=== PATIENT | female | born 1960 | race Caucasian/White ===

== ENCOUNTER → 2017-03-27 | Outpatient (CLI) | payer BC ==
--- NOTE | 2017-03-28 07:44 | MAMMOGRAPHY REPORT ---
BILATERAL DIGITAL SCREENING MAMMOGRAM TOMOSYNTHESIS WITH CAD: 03/27/2017 CLINICAL HISTORY: Routine screening. Patient has no complaints. TECHNIQUE: Breast tomosynthesis in addition to standard 2D mammography was performed. Current study was also evaluated with a Computer Aided Detection (CAD) system. COMPARISON: Comparison is made to exams dated: 03/23/2016 mammogram, 03/02/2015 mammogram, 12/12/2013 mammogram, 11/29/2012 mammogram, 11/17/2011 mammogram, and 10/17/2010 mammogram - [facility] nter. BREAST COMPOSITION: There are scattered areas of fibroglandular density in both breasts. FINDINGS: The parenchymal pattern is unchanged. No developing mass, architectural distortion or clus ter of suspicious microcalcifications is seen in either breast. IMPRESSION: ACR BI-RADS CATEGORY 2: BENIGN There is no mammographic evidence of malignancy. A 1 year screening mammogram is recommended. The pa tient will receive written notification of the results. Approximately 10% of breast cancers are not detected with mammography. A negative mammographic report should not delay biopsy if a clinically suggestive mass is present. Consuelo Alcaraz M.D. ay/:03/27/2017 20:05:28 Rerecording Mixer: Ginger SALINAS(Hyun)(Sahil)(BD), [facility] letter sent: Normal 1/2 BI-RADS Code: ACR BI-RADS Category 2: Benign
== END | disposition home or self-care (01) ==
LOC: C.MAMM 10:36
PROVIDERS: ATTEND Obstetrics & Gynecology
DX: Z12.31 Encounter for screening mammogram for malignant neoplasm of breast (principal)

== ENCOUNTER → 2017-05-22 | Outpatient (CLI) | payer BC ==
--- NOTE | 2017-05-22 11:04 | DIAGNOSTIC IMAGING REPORT ---
R HAND MIN 3 VIEWS CLINICAL HISTORY: RIGHT HAND PAIN COMPARISON: None FINDINGS: Alignment of the right hand is anatomic. No fracture or suspicious lesion is identified. No erosions are identified. There is mild joint space narrowing and osteophytosis within multiple interphalangeal joints of the right hand, most pronounced within the PIP joint of the right third digit. IMPRESSION: 1. No acute fracture. 2. 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 Electronically signed by: Xavi Abad M.D. 05/22/2017 11:02 AM Dictated Date/Time: 05/22/2017 11:00 AM
== END | disposition home or self-care (01) ==
LOC: C.RDSM 14:36
PROVIDERS: ATTEND Family Medicine
DX: M79.641 Pain in right hand (principal); M19.041 Primary osteoarthritis, right hand

== ENCOUNTER → 2017-08-02 | Day surgery (SDC) | payer BC ==
[2017-07-11 10:33] VITALS: Ht 170.2 cm; Wt 70.5 kg
[~2017-08-02] VITALS: Ht 170.2 cm; Wt 70.5 kg
[~2017-08-02] MED LIST: AMLO2.5T PO; ATROPINE SULFATE 0.1 MG/ML 5ML SYR IV PRN; BUPIVACAINE/EPINEPHRINE 0.5% MPF 1:200,000 30 ML VIAL ONE; CEFAZOLIN 1000MG IV PUSH 7.5 ML IV SCH; DEXAMETHASONE SOD INJ 4 MG/ML VIAL ONE; EpHEDrine SULFATE INJ 50 MG/ML AMP IV PRN; FENTANYL CITRATE INJ 50 MCG/1 ML 2 ML VIAL IV PRN; FENTANYL CITRATE INJ 50 MCG/1 ML 2 ML VIAL ONE; FLUMAZENIL 0.1 MG/1 ML 10 ML VIAL IV PRN; HYDR-5688 PO; HYDROmorphone INJ 2 MG/ML SYR/VIAL IV PRN; LABETALOL HCL IV 5 MG/ML 20ML IV PRN; LACTATED RINGER'S 1000ML 1,000 ML IV SCH; LIDOCAINE HCL 2% 2 ML VIAL (20MG/ML) ONE; LIDOCAINE/EPINEPHRINE 1% 20 ML VIAL ONE; LORA10CA2 PO; MELO-83 PO; MEPERIDINE HCL 25 MG/ML CARP IV PRN; MIDAZOLAM HCL 1 MG/ML 2ML VIAL ONE; MULT-506 PO; NALOXONE HCL 0.4 MG/1 ML VIAL/CARP IV PRN; ONDANSETRON INJ 2 MG/ML 2 ML VIAL IV PRN; ONDANSETRON INJ 2 MG/ML 2 ML VIAL ONE; OXYCODONE/ACETAMINOPHEN 5-325 TAB PO PRN; PHENYLEPHRINE 100MCG/ML 5ML SYR IV PRN; PROPOFOL IV EMULSION 10 MG/ML 20 ML VIAL IV ONE; SERT50TA PO; SODIUM CHLORIDE 0.9% 1000ML 1,000 ML IV SCH; [UNRECOGNIZED DRUG - CODE] EXT
--- NOTE | 2017-08-02 06:50 | History & Physical Bridge Note ---
H&P Re-Evaluation Bridge Note: I have examined the patient, reviewed the History & Physical and in the interval since the performance of the History & Physical I have noted the following changes of clinical significance: No changes noted
--- NOTE | 2017-08-02 07:30 | [facility] Post Operative Brief Note ---
Immediate Operative Summary Operative Date Aug 02, 2017. Pre-Operative Diagnosis Right hand long and ring finger trigger digits Post-Operative Diagnosis Same as preop Procedure(s) Performed Right Hand Long And Ring Finger Trigger Digit Releases Surgeon Dr. Luo Rn Pediatric Surgeon(s) Sury Hayward PA-C Estimated Blood Loss 0 mL Findings Consistent with Post-Op Diagnosis Specimens None Anesthesia Type Local Complication(s) none Disposition Accompanied Pt To Recovery: no Disposition: Recovery Room / PACU
--- NOTE | 2017-08-02 07:43 | [facility] Operative Report ---
Operative Report Operative Date Aug 02, 2017. Pre-Operative Diagnosis Right hand long and ring finger trigger digits Post-Operative Diagnosis Same as preop Procedure(s) Performed Right Hand Long And Ring Finger Trigger Digit Releases Surgeon Dr. Luo Senior Office Assistant Surgeon(s) Sury Hayward PA-C Estimated Blood Loss 0 mL Findings Trigger digits Specimens None Anesthesia Local with IV sedation Complication(s) None Disposition Recovery Room / PACU Indications Patient's 56-year-old female with a symptomatic right hand ring and long finger trigger digits refractory to nonsurgical methods of management. Description of Procedure Informed consent was obtained. The patient was identified as Yessenia Eastman. The patient identified the operative site as the right hand ring and long fingers which I marked with my initials. A preoperative surgical timeout was performed. A preop dose of IV antibiotics was given. The patient was positioned supine on the hospital stretcher with the right arm on hand table. A tourniquet was applied to the right arm. The limb was prepped and draped in the usual sterile fashion. The examination under anesthesia showed triggering of the after mentioned digits with hyperflexion without locking. DVT prophylaxis was not indicated The limb was exsanguinated with the Esmarch. Tourniquet inflated to 225 mmHg. A transverse incision was made using the distal palmar crease overlying the ring finger. Blunt dissection was performed in the midline. The tendon sheath was identified. The A1 artis was identified and divided in line with the incision. The artis was slightly thickened. Examination then revealed that the triggering was completely relieved. The tendon appeared normal. The identical procedure was performed on the long finger. The wound was then irrigated with sterile saline and then closed with 4-0 nylon using interrupted horizontal mattress stitches. A soft sterile dressing was applied. The patient was then awakened from anesthesia without difficulty and taken to the recovery room in stable condition. There were no specimens or complications. Counts were correct in the case. Blood loss was minimal. At the conclusion the operation spoke to patient's family informed them of my findings and gave detailed postoperative instructions. The tourniquet was let down after approximately 12 minutes of inflation. I attest to the content of the Intraoperative Record and any orders documented therein. Any exceptions are noted below.
--- NOTE | 2017-08-02 07:43 | Discharge Instructions-SurgCtr ---
Discharge Instructions Date of Service Aug 02, 2017. Visit Reason for Visit: Right Hand Long And Ring Finger Trigger Digits Discharge Discharge Diagnosis / Problem: Right hand long and ring finger trigger digits Discharge Goals Goal(s): Decrease discomfort, Improve function, Increase independence Activity Recommendations Activity Limitations: per Instructions/Follow-up section Anesthesia . Post Anesthesia Instructions: If you have had General Anesthesia or IV Sedation: * Do not drive today. * Resume driving when surgeon permits. * Do not make important decisions or sign legal documents today. * Call surgeon for: 1. Temperature elevations greater than 101 degrees F. 2. Uncontrollable pain. 3. Excessive bleeding. 4. Persistent nausea and vomiting. 5. Medication intolerance (nausea, vomiting or rash). * For nausea and vomiting use only clear liquids such as: tea, soda, bouillon until nausea subsides, then gradually increase diet as tolerated. * If you have any concerns or questions, call your surgeon's office. If physician is unavailable and it is an emergency, call 911 or go to the nearest emergency room. . Instructions / Follow-Up Instructions / Follow-Up The following are instructions to follow after minor hand surgery. ACTIVITY RECOMMENDATIONS: * Minimize activity until your first visit after surgery. * No excessive walking, jogging, sports or laboring. * Return to activity is individualized. Most patients are able to return to everyday activities within 2 weeks. * Return to sports or intensive labor usually occurs at 1-2 months. * DRIVING: Driving may be resumed when you feel you have adequate pain control and use of the hand. * BATHING: You may shower or sponge-bathe immediately after surgery. The dressing will need to be covered with a plastic bag or plastic wrap until the dressing is changed on the fourth or fifth day after surgery. Once the dressing has been changed on the fourth or fifth day after surgery, you may shower and get the incision wet. * Wash with regular soap and water. * Do not bathe (submerge the incision), soak, swim or use a hot tub until the incision is completely healed over with normal skin and the doctor has given the OK to proceed. * There is no need to apply any ointments, powders or salves to your incision. * Do not apply alcohol or hydrogen peroxide directly to the incision. Diluted peroxide (50:50 mixture with sterile saline) may be used to clean dried blood from around the incision area. WORK/SCHOOL: * You may return to sedentary work or school when you are feeling comfortable. This is usually 3-7 days after surgery. * Expect increased discomfort with increased activity. Continue to elevate and ice the hand as much as possible. DIET: * Resume previous diet. MEDICATIONS: * You will have a prescription for pain medication and an anti-inflammatory medication after surgery. Use the pain pills for severe pain and the anti-inflammatory for less severe pain. * Once the pain pills have run out, try to use the anti-inflammatory. If this is not effective then contact the office for assistance. * The pain medication may cause nausea, constipation and sleepiness. You should see how they affect you before driving or similar activity. * The anti-inflammatory may cause stomach upset and bleeding. If this occurs, let your doctor know immediately . * Some patients may need blood clot prevention. This can be done with either a pill or a simple shot. Your doctor will advise you on when to begin these medications and how to take them. * Do not take aspirin or other anti-inflammatory products (i.e. Advil or Aleve ) if taking blood thinner medication. * Take a stool softener like Colace or a stimulant like Senokot to prevent constipation. SPECIAL CARE INSTRUCTIONS: ICE: * Do not apply ice directly to the skin. * Use a thin dressing or stockinet between the skin and ice bag. The dressing in place after surgery will suffice. * Apply ice for 20-30 minutes and repeat every 2-4 hours. This is especially important for the first 3-7 days after surgery. * Once the pain improves, use ice as needed. ELEVATION: * Keep your hand elevated at or above the level of your heart as much as possible. * Expect some increased discomfort and swelling if you allow your hand to hang down for any length of time. DRESSING: * Your dressing will be changed 4-5 days after surgery by the physical therapist or physician's assistant office manager. Leave your dressing intact until this time. * You may then change your dressing daily with clean dry gauze or Band-aids and a soft wrap or stockinet. * Always wash your hands prior to touching the incision area. * Once the stitches are removed, you may leave the wound open to air or cover with a thin bandage. * There is no need to apply any ointments, powders or salves to your incision. * Expect some bloody drainage for the first few days after surgery. * Leave the tape strips in place (if present) for 5-7 days. * The initial dressing after surgery may become soaked with blood or fluid which is normal. You may reinforce your dressing with clean, dry gauze as needed. BRACE: * Bracing is generally not needed after routine hand surgery. THERAPY: * Physical therapy may be prescribed after your surgery. * For carpal tunnel and trigger digit surgery you may begin moving your fingers and wrist immediately after surgery as tolerated. * Be careful to not overuse. * Once the sutures are removed, further range of motion exercises can be performed. * Hand incisions may be very sensitive for a few months after surgery so avoid excessive pressure on the incision. If necessary, use a padded weightlifters' glove. * You may massage the incision with skin cream to make it less sensitive and reduce scarring. * Hand strength usually returns with normal use. * If needed, squeezing a soft sponge or Play-dough may help. * Your doctor will recommend physical therapy if necessary. PROBLEMS/QUESTIONS: * If you have any problems such as severe pain, numbness, tingling or high fevers or if you have any questions, please contact the office at [phone]. * It is not uncommon to have some numbness and tingling after the surgery especially if you have had a nerve block done. This should gradually improve over the first 1- 2 days. If this persists longer or worsens then contact the office. FOLLOW UP VISIT: * If not already scheduled, please call the office at to schedule follow-up appointments for approximately 10 days, 6 weeks and 3 months after surgery. *You have a physical therapy appointment scheduled on August 06, 2017 at 10:30 AM *You have a follow-up appointment scheduled with Dr. Luo in August 17, 2017 at 10 AM. Diet Recommendations Home Diet: no limitations, resume previous diet Procedures Procedures Performed: Right Hand Long And Ring Finger Trigger Digit Releases Pending Studies Studies pending at discharge: no Medical Emergencies . Who to Call and When: Medical Emergencies: If at any time you feel your situation is an emergency, please call 911 immediately. . Non-Emergent Contact Non-Emergency issues call your: Surgeon Call Non-Emergent contact if: temperature is above 101, your pain is not controlled, wound has increased drainage, wound has increased redness, wound has increased pain, you have any medication questions . . "Provider Documentation" section prepared by Sury Hayward. . [place] Drug Monitoring Program Search Results: patient reviewed within database, no issues identified
--- NOTE | 2017-08-02 07:47 | [facility] Operative Report ---
Operative Report Operative Date Aug 02, 2017. Pre-Operative Diagnosis Right hand long and ring finger trigger digits Post-Operative Diagnosis Same as preop Procedure(s) Performed Right Hand Long And Ring Finger Trigger Digit Releases Surgeon Dr. Luo Rod Greaser Surgeon(s) Sury Hayward PA-C Estimated Blood Loss 0 mL Findings Long and ring finger trigger digit Specimens None Drains None Anesthesia Type Local Complication(s) none Disposition no Recovery Room / PACU Indications Patient is a 56-year-old female with complaints of triggering of her right long and ring fingers. She has failed conservative treatment which has consisted of anti-inflammatories and corticosteroid injections. She is requested to proceed with surgical intervention. Risks and complications of surgery were explained to the patient. Informed consent was obtained and surgery was scheduled. X- rays were taken and found to have normal x-rays of her right hand. Description of Procedure Patient was taken to the operating room and placed under IV sedation. She was given local anesthetic into her ring and long fingers. Timeout was performed. She was given 1 g of IV Ancef for surgical prophylaxis. She was prepped and draped in routine sterile fashion. I was present during the entire case, please see Dr. Luo's operative report for further detail. Patient was awakened and transferred to the recovery room in stable condition. I attest to the content of the Intraoperative Record and any orders documented therein. Any exceptions are noted below.
[2017-08-02 08:10] VITALS: BP 128/86; PULSE 67; O2SAT 100
--- NOTE | 2017-08-02 08:12 | Anesthesia Progress Nt - [facility] ---
Anesthesia Post Op Note Date & Time Aug 02, 2017 at 08:12 Vital Signs Pain Intensity: 0 Vital Signs Past 12 Hours Date Time Temp Pulse Resp B/P (MAP) Pulse Ox O2 Delivery O2 Flow Rate FiO2 08/02/17 07:39 36.4 82 16 123/81 (95) 99 Room Air 08/02/17 06:39 36.5 84 16 98/ (32) 95 Room Air Notes Mental Status: alert / awake / arousable, participated in evaluation Pt Amnestic to Procedure: Yes Nausea / Vomiting: adequately controlled Pain: adequately controlled Airway Patency, RR, SpO2: stable & adequate BP & HR: stable & adequate Hydration State: stable & adequate Anesthetic Complications: no major complications apparent
== END | disposition home or self-care (01) ==
LOC: X.SURG 06:17
PROVIDERS: ATTEND Physical Medicine & Rehabilitation Sports Medicine
DX: M65.331 Trigger finger, right middle finger (principal); M65.341 Trigger finger, right ring finger; I10 Essential (primary) hypertension; J45.909 Unspecified asthma, uncomplicated; M16.10 Unilateral primary osteoarthritis, unspecified hip

== ENCOUNTER → 2017-09-19 | Outpatient (CLI) | payer BC ==
[~2017-09-19] MED LIST changes: -ATROPINE SULFATE 0.1 MG/ML 5ML SYR IV PRN; -BUPIVACAINE/EPINEPHRINE 0.5% MPF 1:200,000 30 ML VIAL ONE; -CEFAZOLIN 1000MG IV PUSH 7.5 ML IV SCH; -DEXAMETHASONE SOD INJ 4 MG/ML VIAL ONE; -EpHEDrine SULFATE INJ 50 MG/ML AMP IV PRN; -FENTANYL CITRATE INJ 50 MCG/1 ML 2 ML VIAL IV PRN; -FENTANYL CITRATE INJ 50 MCG/1 ML 2 ML VIAL ONE; -FLUMAZENIL 0.1 MG/1 ML 10 ML VIAL IV PRN; -HYDROmorphone INJ 2 MG/ML SYR/VIAL IV PRN; -LABETALOL HCL IV 5 MG/ML 20ML IV PRN; -LACTATED RINGER'S 1000ML 1,000 ML IV SCH; -LIDOCAINE HCL 2% 2 ML VIAL (20MG/ML) ONE; -LIDOCAINE/EPINEPHRINE 1% 20 ML VIAL ONE; -MEPERIDINE HCL 25 MG/ML CARP IV PRN; -MIDAZOLAM HCL 1 MG/ML 2ML VIAL ONE; -NALOXONE HCL 0.4 MG/1 ML VIAL/CARP IV PRN; -ONDANSETRON INJ 2 MG/ML 2 ML VIAL IV PRN; -ONDANSETRON INJ 2 MG/ML 2 ML VIAL ONE; -OXYCODONE/ACETAMINOPHEN 5-325 TAB PO PRN; -PHENYLEPHRINE 100MCG/ML 5ML SYR IV PRN; -PROPOFOL IV EMULSION 10 MG/ML 20 ML VIAL IV ONE; -SODIUM CHLORIDE 0.9% 1000ML 1,000 ML IV SCH
== END | disposition home or self-care (01) ==
LOC: C.RDSM 12:42
PROVIDERS: ATTEND Physical Medicine & Rehabilitation Sports Medicine
DX: M25.552 Pain in left hip (principal); Z91.048 Other nonmedicinal substance allergy status

== ENCOUNTER 2018-12-25 06:11 | Inpatient (IN) ==
--- NOTE | 2018-12-13 10:46 | PAT Medication Instructions ---
Medication Instructions Date of Service December 13, 2018 Home Medications albuterol sulfate 1 puff INHALATION UD PRN amlodipine 2.5 mg PO QAM cholecalciferol (vitamin D3) [Vitamin D3] 1,000 unit PO QAM cyanocobalamin (vitamin B-12) [Vitamin B-12] 1,000 mcg PO QAM fluticasone propionate [Flonase Allergy Relief] 1 spray INTRANASAL UD PRN loratadine 10 mg PO UD PRN multivitamin [Multiple Vitamins] 1 tab PO QDD sertraline [Zoloft] 1 - 1.5 tab PO QAM DO NOT take the morning of surgery cholecalciferol (vitamin D3) [Vitamin D3] 1,000 unit PO QAM cyanocobalamin (vitamin B-12) [Vitamin B-12] 1,000 mcg PO QAM loratadine 10 mg PO UD PRN Take morning of surgery With a small sip of water, OTHERWISE NOTHING TO EAT OR DRINK AFTER MIDNIGHT: albuterol sulfate 1 puff INHALATION UD PRN (use if needed; please bring with you to hospital day of surgery if possible) amlodipine 2.5 mg PO QAM fluticasone propionate [Flonase Allergy Relief] 1 spray INTRANASAL UD PRN (if needed) sertraline [Zoloft] 1 - 1.5 tab PO QAM Take evening before surgery albuterol sulfate 1 puff INHALATION UD PRN (if needed) fluticasone propionate [Flonase Allergy Relief] 1 spray INTRANASAL UD PRN (if needed) loratadine 10 mg PO UD PRN (if needed) multivitamin [Multiple Vitamins] 1 tab PO QDD Other Notes If you have any questions please call us at [phone] or [phone] or [phone] or [phone]
--- NOTE | 2018-12-13 11:13 | Anesthesiology Consultation ---
Date of Service December 13, 2018 Assessment & Plan (1) Encounter for pre-operative examination: Chart Review Chart Review: Acceptable Risk for Surgery (pending surgeon-ordered PCP clearance (Dr. Crandall; [facility])) and Patient seen in Pre Admission Testing Teaching & Discussion Pre-Anesthesia Teaching/Discussion Notes: Instructed NPO after midnight before surgery,except medications with 15 cc of water. Medication instructions provided according to the PAT guidelines. History Surgery Operation Date: 01/08/19 07:00 Proposed Procedures p Right Total Hip Arthroplasty - Mainor Jade MD Height/Weight Height: 5 ft 7 in Weight: 69.7 kg Allergies Allergy/AdvReac Type Severity Reaction Status Date / Time nickel Allergy Unknown SKIN Verified 12/06/18 09:21 IRRITATION No Known Drug Allergies Allergy Unknown . Verified 02/27/18 08:37 Additional Notes: *Surgeon/OR aware of nickel allergy* Medications Home Medications Medication Instructions Recorded Confirmed Last Taken albuterol sulfate 1 puff INHALATION UD PRN 02/04/18 12/06/18 Unknown amlodipine 2.5 mg PO QAM 02/04/18 12/06/18 02/27/18 07:15 cholecalciferol (vitamin D3) 1,000 unit PO QAM 02/04/18 12/06/18 02/21/18 08:00 [Vitamin D3] cyanocobalamin (vitamin B-12) 1,000 mcg PO QAM 02/04/18 12/06/18 02/21/18 08:00 [Vitamin B-12] fluticasone propionate [Flonase 1 spray INTRANASAL UD PRN 02/04/18 12/06/18 Unknown Allergy Relief] loratadine 10 mg PO UD PRN 02/04/18 12/06/18 02/21/18 08:00 multivitamin [Multiple Vitamins] 1 tab PO QDD 02/04/18 12/06/18 02/13/18 08:00 sertraline [Zoloft] 1 - 1.5 tab PO QAM 02/04/18 12/06/18 02/27/18 07:15 Past Medical History Medical History Anxiety Depression Hx of seasonal allergies PRN INHALER; DENIES HX OF ASTHMA/COPD Hypertension Osteoarthritis Exercise / Class Metabolic Activity II 4-5 Yardwork/Stairs/Walk up hill Past Surgical History Surgical History History of total left hip replacement Hx of LASIK Hx of hand surgery RIGHT TRIGGER FINGER REPAIR Hx of oral surgery TOOTH IMPLANT Hx of wisdom tooth extraction Past Anesthesia History No Hx of Anesthesia Complications and No Family Hx of Anesthesia Complications History of PONV No Hx of PONV and No Hx of Motion Sickness Social History Smoking Status: Never smoker Do You Dip or Chew Tobacco: No Hx Alcohol Use: Yes Alcohol type: wine alcohol intake frequency: holidays/special occasions only Hx Substance Use: No substance use type: does not use Review of Systems Patient denies chest pain, shortness of breath, dyspnea on exertion, reflux, cough, wheezing, palpitations. Physical Exam Vital Signs VITALS BP 121/84 P 77 TEMP 98.4 SP02 98%RA RESP 18 PHYSICAL Full neck and c-spine range of motion. Full TMJ range of motion. TMD 3 finger breaths Mallampati Score 2 Dentition: upper front right permanent implant Lungs: clear throughout to auscultation Cardiac: regular rate and rhythm, no murmurs noted Spine: normal Carotid arteries: negative bruit Extremities: no edema Testing Laboratory Results 12/13/18 11:18 12/13/18 11:18 PT 10.3 Seconds (9.0-12.0) 12/13/18 11:18 INR 1.0 (0.9-1.1) 12/13/18 11:18 APTT 27.1 Seconds (21.0-31.0) 12/13/18 11:18 Urine Color Yellow 12/13/18 Unknown Urine Appearance Clear (Clear) 12/13/18 Unknown Urine pH 6.5 (4.5-7.5) 12/13/18 Unknown Ur Specific [place] 1.016 (1.000-1.030) 12/13/18 Unknown Urine Protein Negative (Negative) 12/13/18 Unknown Urine Glucose (UA) Negative (Negative) 12/13/18 Unknown Urine Ketones Negative (Negative) 12/13/18 Unknown Urine Nitrite Negative (Negative) 12/13/18 Unknown Ur Leukocyte Esterase Negative (Negative) 12/13/18 Unknown Urine WBC (Auto) 1-5 /hpf (0-5) 12/13/18 Unknown Urine RBC (Auto) 5-10 /hpf (0-4) H 12/13/18 Unknown U Hyaline Cast (Auto) 0 /lpf (0-5) 12/13/18 Unknown U Epithel Cells (Auto) 10-20 /lpf (0-5) H 12/13/18 Unknown Urine Bacteria (Auto) Negative (Negative) 12/13/18 Unknown Blood Type A Positive 12/13/18 11:18 Antibody Screen NEGATIVE 12/13/18 11:18 Electrocardiogram Date: 02/11/18 SR with short ME at 69bpm. "Otherwise normal" EKG per cardio. Chest X-Ray Date: 02/11/18 Findings: + NAD
[2018-12-13 12:33] LABS: Basophils # (auto) 0.01 K/uL (0-0.2); Basophils % (auto) 0.2 %; Eosinophils # (auto) 0.06 K/uL (0-0.5); Eosinophils % (auto) 1.2 %; Hematocrit (blood only) 42.3 % (37-47); Hemoglobin 14.2 g/dL (12.0-16.0); Immature Granulocytes # (auto) 0.01 K/uL (0.00-0.02); Immature Granulocytes % (auto) 0.2 %; Lymphocytes # (auto) 1.92 K/uL (1.2-3.4); Lymphocytes % (auto) 38.4 %; Mean Corpuscular Hgb Conc 33.6 g/dL (32-36); Mean Corpuscular Volume 89.1 fL (80-100); Mean Platelet Volume 9.8 fL (7.4-10.4); Platelet Count 236 K/uL (130-400); RDW Coefficient of Variation 12.5 % (11.5-14.5); RDW Standard Deviation 40.5 fL (36.4-46.3); Red Blood Count 4.75 M/uL (4.2-5.4)
[2018-12-13 12:39] LABS: Appearance Urine Clear (Clear); Bacteria Urine Automated Negative (Negative); Bilirubin Urine Negative (Negative); Blood Urine Trace (Negative); Cast Urine Automated 0 /lpf (0-5); Color Urine Yellow; Glucose Urine UA Negative (Negative); Ketones Urine Negative (Negative); Leukocyte Esterase Urine Negative (Negative); Nitrite Urine Negative (Negative); Protein Urine Negative (Negative); Specific Gravity Urine 1.016 (1.000-1.030); Urobilinogen Urine Negative (Negative); pH Urine 6.5 (4.5-7.5)
[2018-12-13 12:43] LABS: Partial Thromboplastin Time 27.1 Seconds (21.0-31.0); Prothrombin Time 10.3 Seconds (9.0-12.0)
[2018-12-13 12:55] LABS: BUN Creatinine Ratio 16.8 (10-20); Calcium 9.2 mg/dl (8.5-10.1); Creatinine Clr Calc Pharmacy 77.3 ml/min; Est GFR (African American) 96.2; Potassium 3.9 mmol/L (3.5-5.1)
--- NOTE | 2018-12-18 19:26 | History and Physical Report ---
DATE OF ADMISSION: 12/25/2018 PATIENT OF: Mainor Jade MD. CHIEF COMPLAINT: Right hip pain. HISTORY OF PRESENT ILLNESS: This 58-year-old white female presents to the office with complaints of longstanding history of right hip pain. She previously underwent left total hip arthroplasty on 02/27/2018 and has done well with that. She elects to proceed with the same on the right. She notes some loss of motion of her hip. Pain is worse with weightbearing. It is affecting her ADLs. She has tried conservative care measures including activity modification, physical therapy, NSAIDs, oral pain medication and home exercises without improvement. Preoperative imaging has been obtained. PAST MEDICAL HISTORY: Significant for anxiety, osteoarthritis, hypertension, and cold weather-induced asthma. PREVIOUS SURGERIES: Trigger finger release in 2018, left total hip arthroplasty on 02/27/2018. ALLERGIES: NKDA. KNOWN ALLERGY TO POLLEN AND DUST. FAMILY HISTORY: Noncontributory. SOCIAL HISTORY: The patient is . Employed as a pharmacist. No tobacco use, no ETOH use. CURRENT MEDICATIONS: Amlodipine 2.5 mg daily, amoxicillin 500 mg p.o. p.r.n. dental procedures, Citracal plus D daily, Claritin 10 mg p.o. daily, Maxair Autohaler 1 puff q.4 hours p.r.n., meloxicam 15 mg p.o. daily, multivitamin daily, ProAir inhaler 1 puff q.i.d. p.r.n., Tretinoin 0.05% topical cream at bedtime, vitamin B12 daily, vitamin D3 daily, Zoloft 50 mg p.o. daily. REVIEW OF SYSTEMS: A total of 10 systems are reviewed and are significant only for the above-stated conditions. PHYSICAL EXAMINATION: VITAL SIGNS: Height 168 cm, weight 69.6 kg, BP 122/88, pulse 76, temperature 37.2, O2 sat 98% on room air. GENERAL: A well-developed, well-nourished middle-aged white female in no acute distress. Sitting in a chair. Alert and oriented. SKIN: Warm and dry with good turgor. No rashes or lesions. No ecchymosis or erythema. HEENT: Normocephalic, atraumatic. Eyes PERRLA, EOMI. Nares patent bilaterally without turbinate enlargement. Oropharynx without erythema or exudate. No lesions noted. Uvula midline. Oral mucosa moist. Dental caps and fillings are noted. HEART: RRR. No MGR. LUNGS: Clear to auscultation bilaterally. No crackles, rhonchi or wheezing. Good air movement. ABDOMEN: Mildly obese. Bowel sounds present x4. Soft, nontender. No organomegaly. No masses. MUSCULOSKELETAL: Right hip reveals no obvious asymmetry or deformity. She has no pain with palpation over the IT band or greater trochanter laterally. There is discomfort with palpation over the anterior flexion crease. Supple motion of the hip. Hip flexion to around 100 degrees, external rotation to around 30 degrees, internal rotation just to neutral. These are limited by pain. Ambulatory with a slightly antalgic gait. NEUROLOGIC: Gross sensation is intact across the right lower extremity by soft touch. Peripheral pulses are 2+. DATA: Radiographic imaging previously obtained shows end-stage DJD of her right hip. Periarticular osteophytes, subchondral sclerosis, and joint space narrowing are all present. ASSESSMENT: Right hip end-stage degenerative joint disease. PLAN: Postoperative prescriptions for Percocet and Coumadin will be provided at discharge from the hospital. Anticipate discharge to home with outpatient lab draw. Postoperative physical therapy appointment will be made. She already has a cane and walker. Preoperative lab work, EKG, and chest x-ray have been ordered. Medical clearance has been requested from her PCP.
[~2018-12-25 06:11] MED LIST changes: -AMLO2.5T PO; +CEFAZOLIN 2000MG 2,000 MG/15 ML SYR IV SCH; -HYDR-5688 PO; -LORA10CA2 PO; +LR 500ML BOLUS, THEN 15ML/HR IV SCH; +LR 60ML/HR IV SCH; -MELO-83 PO; -MULT-506 PO; +ROPIVACAINE 0.5% HCL/PF 150 MG, BUPIVACAINE 0.5% MPF 30 ML, EPINEPHrine 0.15 MG, Ketoro... INFIL SCH; -SERT50TA PO; +TRANEXAMIC ACID 1,000 MG **IV Pre-op IV SCH; -[UNRECOGNIZED DRUG - CODE] EXT
[2018-12-25] MEDS ORDERED: BUPIVACAINE 0.5 % 5 MG/1 ML PF 10ML VIAL ONE (06:23)
--- NOTE | 2018-12-25 06:40 | History & Physical Bridge Note ---
Date of Service December 25, 2018 History & Physical Bridge Note I have examined the patient, reviewed the History & Physical and in the interval since the performance of the History & Physical I have noted the following changes of clinical significance: consent obtained.no changes noted
[2018-12-25] MEDS ORDERED: fentaNYL citrate 100 MCG/2 ML VIAL ONE (07:21)
[2018-12-25] MEDS ORDERED: MIDAZOLAM HCL 1 MG/ML 2ML VIAL ONE (07:21)
[2018-12-25] MEDS ORDERED: ATROPINE SULFATE 0.1 MG/ML 10ML SYR IV PRN (08:09)
[2018-12-25] MEDS ORDERED: ePHEDrine sulfate 50 MG/ML AMP IV PRN (08:09)
[2018-12-25] MEDS ORDERED: ONDANSETRON INJ 2 MG/ML 2 ML VIAL IV PRN ×2 (08:09→11:19)
[2018-12-25] MEDS ORDERED: fentaNYL citrate 100 MCG/2 ML VIAL IV PRN (08:09)
[2018-12-25] MEDS ORDERED: ORTHO JOINT ANESTHETIC ONE (08:30)
[2018-12-25] MEDS ORDERED: KETAMINE HCL INJ 50 MG/ML 10 ML VIAL ONE (08:53)
[2018-12-25] MEDS ORDERED: ONDANSETRON INJ 2 MG/ML 2 ML VIAL ONE (09:09)
[2018-12-25] MEDS ORDERED: LIDOCAINE HCL 2% 2 ML VIAL/AMP(20MG/ML) INFIL ONE (09:09)
[2018-12-25] MEDS ORDERED: PROPOFOL IV EMULSION 10 MG/ML 20 ML VIAL IV ONE (09:09)
[2018-12-25] MEDS ORDERED: PHENYLEPHRINE 100MCG/ML 5ML SYR ONE (09:21)
--- NOTE | 2018-12-25 10:10 | Post Operative Brief Note ---
Immediate Post Op Note v1 Date of Surgery December 25, 2018 Pre & Post Diagnosis Operation Date: 12/25/18 08:50 Pre-Op Diagnosis: Right Hip End-Stage Degenerative Joint Disease Post-Op Diagnosis: Right Hip End-Stage Degenerative Joint Disease Procedure Operation Date: 12/25/18 08:50 Actual Procedures p Right Total Hip Arthroplasty--Uncemented(Right) - Mainor Jade MD Surgeon Mainor Jade MD It Security Architect chauncey/keith Estimated Blood Loss 100 Findings Consistent with Post-Op Diagnosis
--- NOTE | 2018-12-25 10:31 | Operative Report ---
Post Operative Report Pre & Post Diagnosis Operation Date: 12/25/18 08:50 Pre-Op Diagnosis: Right Hip End-Stage Degenerative Joint Disease Post-Op Diagnosis: Right Hip End-Stage Degenerative Joint Disease Procedure Operation Date: 12/25/18 08:50 Actual Procedures p Right Total Hip Arthroplasty--Uncemented(Right) - Mainor aJde MD Surgeon Mainor Jade M.D. Automatic Vulcanizing Lead Operator chauncey/keith Estimated Blood Loss 100 Findings Consistent with Post-Op Diagnosis Specimens bone and soft tissue Anesthesia Type Spinal MAC Complications none Disposition Accompanied Patient To Recovery: Yes Disposition: Recovery Room Description of Procedure Patient was taken to the operating room, placed under spinal anesthesia. Given 2 gm Iv Ancef for surgical prophylaxis. Time out performed, prepped and draped in routine sterile fashion. I was present for the entire case, please see Dr. Jade's operative report for further detail. Patient was awakened and taken to the recovery room in stable condition. I attest to the content of the Intraoperative Record and any orders documented therein. Any exceptions are noted below.
--- NOTE | 2018-12-25 10:35 | Operative Report ---
Post Operative Report Pre & Post Diagnosis Operation Date: 12/25/18 08:50 Pre-Op Diagnosis: Right Hip End-Stage Degenerative Joint Disease Post-Op Diagnosis: Right Hip End-Stage Degenerative Joint Disease Procedure Operation Date: 12/25/18 08:50 Actual Procedures p Right Total Hip Arthroplasty--Uncemented(Right) - Mainor Jade MD Surgeon Mainor Jade MD Wire Roller chauncey/keith Estimated Blood Loss 100 Findings Consistent with Post-Op Diagnosis Specimens Bone and soft tissue Drains None Complications none Disposition Accompanied Patient To Recovery: Yes Disposition: Recovery Room Description of Procedure Patient was positioned in lateral decubitus position. Standard prep and drape. Time out performed. Right hip approached through Trinh's approach and uncemented total hip arthroplasty was performed. Please see Dr Jade's procedure notes for specific details. I was present throughout the procedure and assisted in the wound closure and dressings. The patient was transferred to PACU in a stable condition. I attest to the content of the Intraoperative Record and any orders documented therein. Any exceptions are noted below.
--- NOTE | 2018-12-25 10:50 | Anesthesiology Progress Note ---
Date of Service December 25, 2018 Anesthesia Post Procedure Vital Signs Vital Signs: Temp Pulse Pulse Resp BP Pulse Ox 12/25/18 10:40 63 16 124/72 99 12/25/18 10:30 70 16 128/80 100 12/25/18 10:21 99.1 F 66 16 126/75 99 12/25/18 06:42 98.4 F 76 18 140/97 98 Pain Intensity Right Hip: Pain Intensity: 3 Transfer of Care Handoff Completed per policy Notes Mental Status: alert / awake / arousable and participated in evaluation Patient Amnestic to Procedure: Yes Nausea / Vomiting: adequately controlled Pain: adequately controlled Airway Patency, RR, SpO2: stable & adequate BP & HR: stable & adequate Hydration State: stable & adequate Neuraxial Anesthesia: was administered and sensory block is resolving Anesthetic Complications: no major complications apparent and Pt Satisfied with anesthetic care
--- NOTE | 2018-12-25 10:53 | XRay Report ---
XR pelvis 1-2V routine CLINICAL HISTORY: Post Surgical postoperative COMPARISON: 04/12/2019 DISCUSSION: Placement of a total right hip arthroplasty. Could contact between prosthetic and underly ing bone. Expected soft tissue postoperative change. Pre-existing total left hip arthroplasty. IMPRESSION: Right hip arthroplasty in good position. The above report was generated using voice recognition software. It may contain grammatical, syntax or spelling errors. Electronically signed by: King Madden M.D. 12/25/2018 10:52 AM
--- NOTE | 2018-12-25 11:03 | Operative Report ---
DATE OF OPERATION: 12/25/2018 SURGEON: Mainor Jade MD ORTHOTIC AIDE: Catalina, orthopedic sports fellow. SECOND STAFF INTERNIST OFFICE BASED ONLY: Sury DURON, PREOPERATIVE DIAGNOSIS: Osteoarthritis, right hip with dysplasia. POSTOPERATIVE DIAGNOSIS: Osteoarthritis, right hip with dysplasia. OPERATION PERFORMED: Noncemented right total hip replacement. PERIOPERATIVE SITUATION: Medically cleared female with intractable hip pain with x-rays revealing end-stage disease, has poor coverage of her hip, lateral extrusion. SUMMARY OF IMPLANTS: Size 48 acetabular shell sector cup hole eliminator, cancellous screw 6.5 x 20, acetabular liner 32 x 48+4 neutral, femoral stem is 1 high offset Tri-Lock, femoral head is 32+5 ceramic. ESTIMATED BLOOD LOSS: 100 mL. PATHOLOGY: Pending on bone. DVT prophylaxis with Coumadin. DESCRIPTION OF PROCEDURE: The patient appropriately identified, site verified, consent verified. Antibiotics confirmed as being given. Right lower extremity was prepped and draped in usual routine fashion with the patient in left lateral decubitus position. Posterior approach to the hip was then made. Sharp dissection carried through skin, blunt dissection down to the fascia. This was then incised. A Charnley retractor placed. Care taken to protect the sciatic nerve. Short external rotators were released. The capsule was then T'ed and preserved. The hip was dislocated. The femoral head was resected. Capsular release anteriorly of the femur was then performed. Acetabular retractors placed. Excellent exposure obtained. Serial reaming carried up. There was a large labral tear anteriorly. This was all excised. Serial reaming carried, a 48 cup tried to be impacted multiple times, but there was some asymmetry and it required multiple reaming attempts to remove osteophytes. Once this was done, the cup fit nicely. It was impacted into appropriate anteversion and inclination and had a good rim fit. An additional screw was then placed, 6.5 x 20 with excellent purchase. Trial liner was then seated. We ended up going with a +4 to get better center edge angle. The hip was then flexed and internally rotated. The proximal femur prepared with box order person, canal finder, lateralizing rasp, and serial broaching up to a size 1. Size 1 lateralized with a +5 head and the +4 liner gave excellent leg lengths and excellent stability. The hip was then dislocated. All trial implants were removed. The wound irrigated with Betadine Pulsavac and then permanent liner seated after the hole eliminator placed, permanent head and stem seated. The hip reduced. It was stable in all planes. Leg lengths were good. It was then closed for the capsular layer and the short external rotators with #2 Vicryl, the fascial layer with #2 Vicryl, the deep fat with #2 Vicryl. Orthomix injected into the subcutaneous tissue and the subcutaneous tissue closed with 2-0 plain and stainless steel clips. Appropriate dressing applied. The patient transferred to recovery room in satisfactory condition having tolerated the procedure well. EBL was roughly again 100 mL. Perioperative situation was healthy female with intractable hip pain with end-stage disease and dysplasia, had opposite side done and done well. I attest to the content of the Intraoperative Record and any orders documented therein. Any exception s are noted below.
[2018-12-25] MEDS ORDERED: SODIUM CHLORIDE 0.9% 1000ML 1,000 ML IV SCH (11:19)
[2018-12-25] MEDS ORDERED: HYDROmorphone INJ 0.5 MG/0.5 ML SYR IV PRN (11:19)
[2018-12-25] MEDS ORDERED: BISACODYL 10 MG SUPP PR PRN (11:19)
[2018-12-25] MEDS ORDERED: NALOXONE HCL 0.4 MG/1 ML VIAL/CARP IV PRN (11:19)
[2018-12-25] MEDS ORDERED: MAGNESIUM HYDROXIDE SUSP 30 ML UDC PO PRN (11:19)
[2018-12-25] MEDS ORDERED: OXYCODONE HCL IR 5 MG TAB (IMMEDIATE RELEASE) PO PRN (11:19)
--- NOTE | 2018-12-25 11:24 | Progress Note ---
DATE: 12/25/2018 SUBJECTIVE: Postop check, status post right total hip replacement. The patient is sitting in bed comfortably. She denies chest pain, shortness of breath, fever, chills, nausea, vomiting or headache. OBJECTIVE: Vital signs are stable. She is afebrile. Neurovascular check is limited by spinal. Postop x-rays look excellent. ASSESSMENT AND PLAN: Doing well. She is transferred to the floor and now will be on room bed 320. Coumadin per nomogram this evening. Hep-Lock IV after has her first meal. Case management assessment today. Potential discharge tomorrow.
[2018-12-25] MEDS: KETOROLAC 30 MG/ML VIAL IV SCH ×2 (12:10→17:33)
[2018-12-25] MEDS ORDERED: ORTHO WARFARIN NOMOGRAM SCH (14:00)
--- NOTE | 2018-12-25 15:07 | Discharge Summary ---
CHIEF COMPLAINT: Right hip pain. HISTORY OF PRESENT ILLNESS: Underwent elective right total hip replacement. Hospital course has been uneventful. At this point in time, she is moving well. Neurovascular check is improving from her spinal. She is lying in bed, sitting up eating and drinking. No issues. PAST MEDICAL HISTORY: Remarkable for anxiety, osteoarthritis, hypertension and asthma. PAST SURGICAL HISTORY: Previous surgeries include left hip total replacement in 2018. ALLERGIES: TO DUST AND POLLEN. No drugs. FAMILY HISTORY: Noncontributory. 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 No tobacco or alcohol use. PREADMISSION MEDICATIONS: Include amlodipine, amoxicillin p.r.n., Citracal, Claritin, Maxair, meloxicam, ProAir inhaler, Tretinoin topical cream, vitamins, Zoloft. She will be placed on Coumadin, keep INR 1.8-2.2. P.r.n. pain medication. She will discontinue the meloxicam at this point in time. REVIEW OF SYSTEMS: Reveals no issues. HOSPITAL COURSE: Has been uneventful. Eating, drinking. Spinal wearing off and start moving later today. Sitting up in bed. Postop x-rays are excellent. ASSESSMENT: Status post total hip replacement, right lower extremity. Plan to discharge to home tomorrow. Coumadin dose per INR. Keep INR 1.8-2.2.
[2018-12-25] MEDS: ACETAMINOPHEN 500 MG TAB PO SCH (15:51)
[2018-12-25] MEDS: CEFAZOLIN 2000MG 2,000 MG/15 ML SYR IV SCH (15:51)
[2018-12-25] MEDS ORDERED: WARFARIN SOD 5 MG TAB PO SCH (16:00)
[2018-12-25] MEDS ORDERED: TRANEXAMIC ACID 1,000 MG in 0.9 % SODIUM CHLORIDE 100 ML IV SCH (16:23)
[2018-12-25] MEDS ORDERED: MULTIVITAMIN TAB PO SCH (16:30)
[2018-12-25] MEDS: DOCUSATE SODIUM 100 MG CAP PO SCH (20:13)
[2018-12-25] MEDS ORDERED: SENNA 8.6 MG TAB PO SCH (21:00)
[2018-12-26] MEDS: ACETAMINOPHEN 500 MG TAB PO SCH ×2 (00:10→07:29)
[2018-12-26] MEDS: CEFAZOLIN 2000MG 2,000 MG/15 ML SYR IV SCH (00:11)
[2018-12-26] MEDS: KETOROLAC 30 MG/ML VIAL IV SCH ×2 (00:11→06:10)
[2018-12-26] MEDS: DOCUSATE SODIUM 100 MG CAP PO SCH (07:30)
[2018-12-26] MEDS ORDERED: dexAMETHasone 10 MG in SYRINGE 0 ML IV SCH (08:00)
--- NOTE | 2018-12-26 08:05 | Progress Note ---
DATE: 12/26/2018 SUBJECTIVE: Postop day #1 status post right total hip replacement. The patient did relatively well last night. She has only occasional ache or pain. She denies any chest pain, shortness of breath, fever, chills, nausea, vomiting or headache. OBJECTIVE: Vital signs are stable. She is afebrile. Neurovascular check femoral sciatic nerve is normal. Hip located. Wound dressing is clean, dry and intact. Calves nontender. A.m. labs are pending. ASSESSMENT: Overall, doing well. Discharge to home today after PT, OT. Coumadin dose per nomogram. Discharge on 4 mg if INR is 1.5 or less. Check INR again on Sunday. If INR is 1.6-2.0, discharge on 2 mg; and if INR is greater than 2, hold.
[2018-12-26 08:23] LABS: Basophils # (auto) 0.02 K/uL (0-0.2); Basophils % (auto) 0.2 %; Eosinophils # (auto) 0.03 K/uL (0-0.5); Eosinophils % (auto) 0.2 %; Hematocrit (blood only) 38.5 % (37-47); Immature Granulocytes # (auto) 0.02 K/uL (0.00-0.02); Immature Granulocytes % (auto) 0.2 %; Lymphocytes # (auto) 2.89 K/uL (1.2-3.4); Lymphocytes % (auto) 23.1 %; Mean Corpuscular Hgb Conc 33.8 g/dL (32-36); Mean Corpuscular Volume 87.5 fL (80-100); Mean Platelet Volume 9.3 fL (7.4-10.4); Monocytes # (auto) 1.12 K/uL (0.11-0.59); Neutrophils # (auto) 8.42 K/uL (1.4-6.5); Neutrophils % (auto) 67.3 %; Platelet Count 255 K/uL (130-400); RDW Coefficient of Variation 12.5 % (11.5-14.5); RDW Standard Deviation 40.3 fL (36.4-46.3)
[2018-12-26 08:33] LABS: INR 1.1 (0.9-1.1); Prothrombin Time 10.9 Seconds (9.0-12.0)
[2018-12-26 08:50] LABS: BUN Creatinine Ratio 10.6 (10-20); Calcium 8.6 mg/dl (8.5-10.1); Creatinine Clr Calc Pharmacy 61.3 ml/min; Est GFR (African American) 76.6; Est GFR (Non-African American) 66.1; Potassium 3.6 mmol/L (3.5-5.1)
[2018-12-26] MEDS ORDERED: CYANOCOBALAMIN 500 MCG TABLET (VITAMIN B-12) PO SCH (09:00)
[2018-12-26] MEDS ORDERED: SERTRALINE HCL 50 MG TABLET PO SCH (09:00)
[2018-12-26] MEDS ORDERED: AMLODIPINE BESYLATE 5 MG TAB PO SCH (09:00)
[2018-12-26] MEDS ORDERED: CHOLECALCIFEROL 1,000 UNITS TAB PO SCH (09:00)
[2018-12-26] MEDS ORDERED: WARFARIN SOD 5 MG TAB PO ONE (09:15)
--- NOTE | 2018-12-26 11:23 | Orthopedic Progress Note ---
Date of Service December 26, 2018 Assessment & Plan (1) History of total right hip arthroplasty: WBAT with walker assistance Abduction pillow use for 6wks post op Reviewed total hip precautions Pain control with PO meds Coumadin and TEDs for DVT prophy Goal INR 1.8-2.2 Ice with EZ wrap Home health services for first 2 wks post op New dressing applied today PT/OT with in patient Plan on discharge later today Follow up at [facility] as previously scheduled. Subjective 58 yo F patient is day 1 s/p Right total hip arthroplasty. Currently sitting up in chair eating breakfast. Has no complaints at present. Denies pain, fever, chill, sweats, CP, SOB, nausea, vomiting or fatigue. States that she is ready to go home. Review of Systems Review of Systems: All systems reviewed & are unremarkable except as noted in HPI & below Physical Exam Physical Exam: Right Hip: Surgical incision site is closed with kita intact. No active drainage or fluctuance. NV intact. Able to perform SLRT. No pain with log roll and light passive internal and external rotation. Calf s oft and supple without tenderness. Able to actively dorsi and plantar flex foot without difficulty. Periph pulses easily palpable. Cap refill < 2 seconds. Results & Data Vital Signs (Past 12 Hours) Vital Signs Temp Pulse Pulse Resp BP Pulse Ox 12/26/18 11:02 36.7 C 65 69 16 117/78 99 12/26/18 07:31 36.7 C 69 16 117/78 99 12/26/18 03:49 36.8 C 74 16 103/64 97 Laboratory Results 12/26/18 12/26/18 12/26/18 Range/Units 08:02 08:02 08:02 WBC 12.50 H (4.8-10.8) K/uL RBC 4.40 (4.2-5.4) M/uL Hgb 13.0 (12.0-16.0) g/dL Hct 38.5 (37-47) % MCV 87.5 (80-100) fL MCH 29.5 (25-34) pg MCHC 33.8 (32-36) g/dL RDW Std Deviation 40.3 (36.4-46.3) fL RDW Coeff of Brayan 12.5 (11.5-14.5) % Plt Count 255 (130-400) K/uL MPV 9.3 (7.4-10.4) fL Immature Gran % (Auto) 0.2 % Neut % (Auto) 67.3 % Lymph % (Auto) 23.1 % [place] % (Auto) 9.0 % Eos % (Auto) 0.2 % Baso % (Auto) 0.2 % Immature Gran # (Auto) 0.02 (0.00-0.02) K/uL Neut # (Auto) 8.42 H (1.4-6.5) K/uL Lymph # (Auto) 2.89 (1.2-3.4) K/uL [place] # (Auto) 1.12 H (0.11-0.59) K/uL Eos # (Auto) 0.03 (0-0.5) K/uL Baso # (Auto) 0.02 (0-0.2) K/uL PT 10.9 (9.0-12.0) Seconds INR 1.1 (0.9-1.1) Sodium 139 (136-145) mmol/L Potassium 3.6 (3.5-5.1) mmol/L Chloride 107 (98-107) mmol/L Carbon Dioxide 24 (21-32) mmol/L Anion Gap 8.0 (3-11) BUN 10 (7-18) mg/dl Creatinine 0.96 (0.6-1.2) mg/dl Est Cr Clr Drug Dosing 61.3 ml/min Est GFR ( Amer) 76.6 Est GFR (Non-Af Amer) 66.1 BUN/Creatinine Ratio 10.6 (10-20) Glucose 114 H (70-99) mg/dl Calcium 8.6 (8.5-10.1) mg/dl
== END 2018-12-26 11:34 | disposition home health service (06) | DRG 470 ==
LOC: ASU 06:11 → 3E 10:28